=== PATIENT | female | born 1955 | race African-American/Black ===

== ENCOUNTER 2017-06-20 08:56 | Inpatient (IN) ==
[2017-06-20 10:57] LABS: Basophils # 0.1 10*3/uL (0.0-0.2); Basophils % 2.2 % (0.0-0.8); Eosinophils # 0.1 10*3/uL (0.0-0.87); Eosinophils % 2.2 % (0.00-10.9); Hematocrit 30.2 VOL% (35.7-47.0); Hemoglobin 10.7 GM/DL (12.0-16.0); Immature Granulocytes % 0.3 %; Immature Granulocytes Absolute 0.01 #; Lymphocytes # 1.3 10*3/uL (1.4-4.0); Lymphocytes % 33.9 % (21.3-54.2); Mean Corpuscular HGB Conc 35.4 GM/DL (32-36); Mean Corpuscular Hemoglobin 31 PG (27-34); Mean Platelet Volume 9.6 FL (9.6-12.0); Monocytes # 0.4 10*3/uL (0.11-0.8); Monocytes % 10.2 % (1.7-12.7); Neutrophils # 1.9 10*3/uL (1.4-7.4); Neutrophils % 51.2 % (38.7-73.9); Platelet Count 250 T/CUMM (130-400); Red Blood Count 3.43 MC/CUMM (3.8-5.5); Red Cell Distribution Width 13.2 % (9.3-17.3); White Blood Count 3.7 T/CUMM (4-12)
--- NOTE | 2017-06-20 11:24 | Emergency Department Note ---
Arrival - Arrival Chief Complaint: Abdominal / Flank Pain Stated Complaint: BLACK VOMIT, BLACK STOOL ED Nursing Triage Note: Pt c/o abd pain and had dark red blood in her stool/ vomit on Saturday, but the dark colored stool has improved. [place] [facility] [place] that if her abd started hurting for her to go into the ER for eval. Mode of Arrival: Ambulatory Time Seen by Provider: 06/20/17 10:27 - History of Present Illness HPI Narrative: Patient presents to the ER today with c/o abd pain and had dark stools yesterday. She states on Saturday she was weak and vomited "black stuff". She saw her PCP on Saturday and was told to the ER if it continued. Today her BM was normal and she has not vomited since Saturday. She states the pain is in her epigastric region and describes it as "someone punching me". She states that relaxing makes the pain better but food makes the pain worse. She states she just started her HTN and Thyroid medication yesterday. She states she has never had this pain before. PCP- Constantino at [facility] Allergies- none PMH- HTN, Thryoid Social- ETOH occasionally Drugs ("weed') occasionally Smoke- denies Allergies/Adverse Reactions: Allergies Allergy/AdvReac Type Severity Reaction Status Date / Time No Known Allergies Allergy Verified 06/20/17 08:57 Home Medications: Home Medications Medication Instructions Recorded Confirmed Type Levothyroxine Tab [Synthroid Tab] 50 mcg PO QAM 06/20/17 06/20/17 History amLODIPine [Norvasc] 10 mg PO QAM 06/20/17 06/20/17 History Review of System - Review of System 12 point system: reviewed and no additional remarkable complaints except as stated Medical,Surgical,& Family Hx - Medical History Cardio: History of: Hypertension Endocrine: History of: Thyroid Disorder - Social History Smoking Status: Never smoker Exam Physical Examination: General General appearance: 61-year-old black female is alert and in no apparent distress - Head Head exam: Present: atraumatic, normocephalic, normal inspection - Eye Eye exam: Present: normal appearance, PERRL, EOMI - ENT ENT exam: Present: mucous membranes moist - Neck Neck exam: Present: normal inspection, full ROM, trachea midline - Chest Chest inspection: Present: normal inspection, symmetric chest wall rise - Respiratory Respiratory exam: Present: normal lung sounds bilaterally - Cardiovascular Cardiovascular exam: Present: regular rate, normal rhythm, normal heart sounds - Abdominal Exam Abdominal exam: Present: soft, normal bowel sounds, slight tenderness to palpation on the left upper quadrant and epigastric area - Rectal Exam Rectal exam: Nurse Rita present for exam- - Extremities Exam Extremities exam: Present: normal inspection, full ROM, normal capillary refill - Back Exam Back exam: Present: normal inspection, full ROM - Neurological Exam Neurological exam: Present: alert, oriented X3, CN II-XII grossly intact - Psychiatric Psychiatric exam: Present: normal affect, normal mood - Skin Skin exam: Present: warm, dry, intact, normal color, Vital Signs: Vital Signs Temperature 98.2 F 06/20/17 15:01 Pulse Rate 84 06/20/17 15:01 Respiratory Rate 18 06/20/17 15:01 Blood Pressure 159/93 06/20/17 15:01 O2 Sat by Pulse Oximetry 97 06/20/17 15:01 Course Course Narrative: Hemocult - grossly positive 1207: Spoke to hospitalist service- they will come evaluate the patient Results - Labs CBC & BMP: 06/20/17 15:03 06/20/17 10:43 Lab Results: I have reviewed the patients labs Labs: Laboratory Tests 06/20/17 10:43 Sodium 136 Potassium 4.2 Chloride 100 Carbon Dioxide 31 Anion Gap 9.2 BUN 8 Creatinine 0.60 GFR Calculation 96 BUN/Creatinine Ratio 13.00 Glucose 108 H Calculated Osmolality 270.0 L Calcium 9.7 Total Bilirubin 1.20 H AST 78 H ALT 46 Alkaline Phosphatase 55 Total Protein 7.8 Albumin 4.2 Globulin 3.6 H Albumin/Globulin Ratio 1.1 Laboratory Tests 06/20/17 10:43 WBC 3.7 L RBC 3.43 L Hgb 10.7 L Hct 30.2 L MCV 88.0 MCH 31 MCHC 35.4 RDW 13.2 Plt Count 250 MPV 9.6 Neut % (Auto) 51.2 Lymph % (Auto) 33.9 [place] % (Auto) 10.2 Eos % (Auto) 2.2 Baso % (Auto) 2.2 H Neut # (Auto) 1.9 Lymph # (Auto) 1.[address] [place] # (Auto) 0.4 Eos # (Auto) 0.1 Baso # (Auto) 0.1 Immature Gran % 0.3 Nucleated RBC % 0.0 Immature Gran # 0.01 Nucleated RBCs # 0.00 Immature Plt Fraction 0.0 Disposition Clinical Impression: GI bleed Case discussed with: patient, patient's family Disposition: Still a Patient Condition: Stable Time of Disposition: 14:40
[2017-06-20 11:44] LABS: Albumin 4.2 G/DL (3.4-5.0); Bilirubin,Total 1.2 MG/DL (0.2-1.0); Calcium 9.7 MG/DL (8.5-10.1); Potassium 4.2 MMOL/L (3.5-5.1); Total Protein 7.8 G/DL (6.4-8.3)
--- NOTE | 2017-06-20 14:12 | Hospitalist History & Physical ---
<Juan Yates - Last Filed: 06/20/17 13:57> Assessment and Plan - Time spent with patient Time spent with patient: Greater than 30 minutes (1) GI bleed Status: Acute Assessment and plan: 61-year-old -Malaysian female who presents for further evaluation of GI bleed. Patient reports history of melena and coffee-ground emesis which seemed to have resolved since Saturday. She does have heme positive stools on admission. H&H is 10.7 and 30.2. Admit for further evaluation to a monitored bed. IV fluids. NPO. Type and screen. Trend H&H. GI consultation. Current Visit: Yes (2) Hypertension Status: Acute Assessment and plan: Continue home medications. Current Visit: Yes (3) Hypothyroidism Status: Acute Assessment and plan: Check TSH and free T4 level. Continue home medications. Current Visit: Yes History of Present Illness Chief complaint: abdominal pain History of present illness: Ms. Brown is a 61 year old female with a past medical history significant for hypertension and hypothyroidism who presents to nonurgent care today for further evaluation of suspected GI bleed having onset 3 days ago. The patient reports she experienced a syncopal episode on Saturday however she recalls being aware of "everything". Shortly after regaining her footing, she began to have coffee ground emesis and melena. She went to the [facility] and was evaluated there. She reports continued abdominal pain but states that her BM has returned to normal. She describes this abdominal pain as someone "punching her in the stomach". She denies much of an appetite as food seems to make the abdominal pain worse. She denies excessive NSAID use stating that she has only taken one Ibuprofen in the last week, however she confirms being under stress at home. Per ED nurse, patient does have heme positive stool. H&H is mildly decreased at 10.7 and 30.2. Serum glucose 108. This case has been discussed with Sophy Barkley NP and Dr. Miller, admitting physician, and the patient will be admitted to the hospital medicine service for further evaluation and treatment. CODE STATUS has been discussed; patient is a full code. Home medications have been reviewed and reconciled. Home Medications Medication Instructions Recorded Confirmed Type Levothyroxine Tab [Synthroid Tab] 50 mcg PO QAM 06/20/17 06/20/17 History amLODIPine [Norvasc] 10 mg PO QAM 06/20/17 06/20/17 History Allergies Allergy/AdvReac Type Severity Reaction Status Date / Time No Known Allergies Allergy Verified 06/20/17 08:57 Medical,Surgical,& Family Hx - Medical History Cardio: History of: Hypertension Endocrine: History of: Thyroid Disorder - Surgical History Reproductive Surgeries: Surgical HX of;: Tubal Ligation - Family History Family History: Reports;: Family Diabetes, Family Hypertension - Social History Smoking Status: Current some day smoker Have you smoked in the last 12 months: Yes Time spent discussing smoking cessation with patient: 3 to 10 minutes Frequency of Alcohol Use: Frequently (3-6 beers daily) Type of Drug Use: Marijuana Marital Status: Single Lives With:: Children Functional capacity: independent ambulation - Constitutional Constitutional: Present: weakness. Absent: fever(s) - EENT Eyes: Absent: blurry vision, loss of vision Nose, mouth and throat: Absent: neck pain, sinus pressure - Cardiovascular Cardiovascular: Absent: chest pain at rest, chest pain with activity, dyspnea, dyspnea on exertion, edema - Respiratory Respiratory: Absent: cough, dyspnea, wheezing, snoring - Gastrointestinal Gastrointestinal: Present: abdominal pain, coffee ground emesis, hematemesis, melena - Genitourinary Genitourinary: Absent: hematuria - Musculoskeletal Musculoskeletal: Absent: back pain, myalgias - Neurological Neurological: Present: syncope. Absent: abnormal gait, abnormal speech - Psychiatric Psychiatric: Absent: anxiety, depression - Endocrine Endocrine: Present: cold intolerance - Hematologic/Lymphatic Hematologic/Lymphatic: Absent: easy bleeding, easy bruising Exam - Constitutional Vitals: Period Temp Pulse Resp BP Sys/Rodrigues Pulse Ox Last 24 Hr 97.3 F-97.3 F 84-91 16-20 152-187/78-110 99-100 Exam: General appearance: normal weight, no acute distress - Head Head exam: Present: normocephalic, atraumatic - Eye Eye exam: Present: EOMI. Absent: conjunctival injection, nystagmus Pupils: Present: JENNIE, normal accommodation - ENT ENT exam: Present: normal exam, normal external ear exam - Neck Neck exam: Present: normal inspection. Absent: lymphadenopathy, tenderness, thyromegaly - Respiratory Respiratory exam: Present: clear to auscultation bilaterally. Absent: rales, rhonchi, wheezes - Cardiovascular Cardiovascular exam: Present: regular rate and rhythm. Absent: carotid bruit, gallop, rubs - GI/Abdominal GI/Abdominal exam: Present: normal bowel sounds. Absent: ascites, distended, mass - Extremities Exam Extremities exam: Present: normal inspection, normal capillary refill. Absent: edema - Back Exam Back exam: Absent: CVA tenderness (L), CVA tenderness (R) - Neurological Exam Neurological exam: Present: alert, oriented X3, CN II-XII intact, reflexes normal - Psychiatric Psychiatric exam: Present: normal affect, normal mood - Skin Skin exam: Present: normal color, warm, dry Results - Labs CBC & BMP: 06/20/17 10:43 06/20/17 10:43 Lab Results: I have reviewed the past 24 hour labs <Jeanna Miller - Last Filed: 06/20/17 15:18> Assessment and Plan (1) GI bleed Status: Acute Assessment and plan: agree with above Current Visit: Yes (2) Hypertension Status: Acute Current Visit: Yes (3) Hypothyroidism Status: Acute Current Visit: Yes History of Present Illness History of present illness: Ms. Brown is a 61 year old female seen and examined, history and physical reviewed and edited. Exam - Constitutional Vitals: Period Temp Pulse Resp BP Sys/Rodrigues Pulse Ox Last 24 Hr 97.3 F-98.2 F 84-91 16-20 152-187/78-110 97-100 Results - Labs CBC & BMP: 06/20/17 10:43 06/20/17 10:43
[2017-06-20] MEDS ORDERED: ONDANSETRON 4 MG/2 ML VIAL IV PRN (14:50)
[2017-06-20] MEDS ORDERED: ACETAMINOPHEN 325 MG TABLET PO PRN (14:50)
--- NOTE | 2017-06-20 15:03 | Gastrointestinal Consult Note ---
<Karen Guajardo - Last Filed: 06/20/17 15:06> Assessment and Plan (1) GI bleed Status: Acute Assessment and plan: history of abdominal pain with associated coffee-ground emesis and melena. No prior history of GI bleed in the past. No known prior history of endoscopy in the past. Occasional ibuprofen use. Clear liquid diet. Monitor H &H. Plan for EGD tomorrow to further evaluate. Plan an addendum to followed by Dr. Us. Current Visit: Yes History of Present Illness Chief complaint: GI bleed History of present illness: Ms. Brown is a 61 year old female who was admitted to the hospital today with a four-day history of abdominal pain with associated melena and coffee-ground emesis. Patient states she was in her usual state of health until Saturday when she began not feeling well. She states she had onset of some epigastric discomfort that was like a "gnawing" sensation all the time. She states that throughout the day she did not feel well and did not eat very much however that night she developed nausea and vomiting as well as diarrhea. She states with the vomiting she had a moderate amount of dark coffee-ground emesis. Following this she had a couple of loose dark runny stools. She states that the vomiting and the diarrhea resolved by Saturday however she continued to have the pain in her abdomen. She decided to come to the emergency room today for further evaluation of the pain. She states the pain does not seem to be associated with meals are affected by other factors. She states the pain is continuous at times and other times occur sporadically. She denies any recent weight loss fever or chills. She denies any dysphagia or GERD. She denies any increase dyspepsia symptoms. She states that she only takes an occasional ibuprofen for her sinuses. Denies any anticoagulants. H&H is stable at however have no baseline labs to compare to at this time. Patient is not aware of a prior history of anemia. States she is not aware of having a GI bleed in the past and does not recall having endoscopy in the past. Home Medications Medication Instructions Recorded Confirmed Type Levothyroxine Tab [Synthroid Tab] 50 mcg PO QAM 06/20/17 06/20/17 History amLODIPine [Norvasc] 10 mg PO QAM 06/20/17 06/20/17 History Allergies Allergy/AdvReac Type Severity Reaction Status Date / Time No Known Allergies Allergy Verified 06/20/17 08:57 Medical,Surgical,& Family Hx - Medical History Cardio: History of: Hypertension Endocrine: History of: Thyroid Disorder - Surgical History Reproductive Surgeries: Surgical HX of;: Tubal Ligation - Family History Family History: Reports;: Family Diabetes, Family Hypertension - Social History Smoking Status: Current some day smoker Frequency of Alcohol Use: Frequently (3-6 beers daily) Type of Drug Use: Marijuana 12 point system: reviewed and no additional remarkable complaints except as stated - Constitutional Constitutional: Present: as per HPI - EENT Eyes: Present: as per HPI Ears: Present: as per HPI Nose, mouth and throat: Present: as per HPI - Cardiovascular Cardiovascular: Present: as per HPI - Respiratory Respiratory: Present: as per HPI - Gastrointestinal Gastrointestinal: Present: as per HPI, abdominal pain, coffee ground emesis, diarrhea, melena, nausea, vomiting - Genitourinary Genitourinary: Present: as per HPI - Musculoskeletal Musculoskeletal: Present: as per HPI - Neurological Neurological: Present: as per HPI - Psychiatric Psychiatric: Present: as per HPI - Endocrine Endocrine: Present: as per HPI - Hematologic/Lymphatic Hematologic/Lymphatic: Present: as per HPI Exam - Constitutional Vitals: Period Temp Pulse Resp BP Sys/Rodrigues Pulse Ox Last 24 Hr 97.3 F-98.2 F 84-91 16-20 152-187/78-110 97-100 General appearance: normal weight, no acute distress - Head Head exam: Present: normal inspection, normocephalic - Eye Eye exam: Present: other (Lids and conjunctivae are unremarkable). Absent: scleral icterus - ENT ENT exam: Present: normal exam, normal oropharynx - Neck Neck exam: Present: normal inspection - Respiratory Respiratory exam: Present: clear to auscultation bilaterally. Absent: rales, rhonchi, wheezes - Cardiovascular Cardiovascular exam: Present: regular rate and rhythm. Absent: diastolic murmur , JVD, systolic murmur - GI/Abdominal GI/Abdominal exam: Present: normal bowel sounds, soft. Absent: ascites, distended, mass, organomegaly, tenderness - Extremities Exam Extremities exam: Present: normal inspection, full ROM - Back Exam Back exam: Present: normal inspection - Neurological Exam Neurological exam: Present: alert, oriented X3 - Psychiatric Psychiatric exam: Present: normal affect, normal mood - Skin Skin exam: Present: normal color, warm, dry Results - Labs CBC & BMP: 06/20/17 10:43 06/20/17 10:43 Lab Results: I have reviewed the past 24 hour labs <Matias Us - Last Filed: 06/20/17 21:24> History of Present Illness Chief complaint: 3030 History of present illness: Ms. Brown is a 61 year old female Exam - Constitutional Vitals: Period Temp Pulse Resp BP Sys/Rodrigues Pulse Ox Last 24 Hr 97.3 F-98.7 F 84-91 16-20 152-187/78-110 97-100 Results - Labs CBC & BMP: 06/20/17 19:37 06/20/17 10:43
[2017-06-20 15:08] LABS: Free T4 (Free Thyroxine) 0.66 NG/DL (0.76-1.46); Thyroid Stimulating Hormone 77.3 uIU/ml (0.358-3.74)
[2017-06-20] MEDS: SODIUM CHLORIDE 0.45% 1,000 ML IV SCH (15:20)
[2017-06-20] MEDS: SODIUM CHLORIDE 0.9% 1,000 ML IV SCH ×2 (15:20→20:52)
[2017-06-20] MEDS: PANTOPRAZOLE 40 MG VIAL IV SCH ×2 (15:20→20:53)
[2017-06-20 15:33] LABS: Hematocrit 30.8 VOL% (35.7-47.0); Hemoglobin 11.1 GM/DL (12.0-16.0)
[2017-06-20 20:21] LABS: Hematocrit 29.2 VOL% (35.7-47.0); Hemoglobin 10.3 GM/DL (12.0-16.0)
[2017-06-21] MEDS: SODIUM CHLORIDE 0.45% 1,000 ML IV SCH ×4 (04:04→23:15)
[2017-06-21 07:01] LABS: Basophils # 0.1 10*3/uL (0.0-0.2); Basophils % 2.6 % (0.0-0.8); Eosinophils # 0.2 10*3/uL (0.0-0.87); Eosinophils % 5.9 % (0.00-10.9); Hematocrit 28.7 VOL% (35.7-47.0); Immature Granulocytes % 0.7 %; Immature Granulocytes Absolute 0.02 #; Lymphocytes % 36.4 % (21.3-54.2); Mean Corpuscular HGB Conc 34.8 GM/DL (32-36); Mean Corpuscular Hemoglobin 31 PG (27-34); Mean Corpuscular Volume 87.8 FL (87-102); Mean Platelet Volume 9.8 FL (9.6-12.0); Monocytes # 0.3 10*3/uL (0.11-0.8); Monocytes % 10.7 % (1.7-12.7); Neutrophils # 1.2 10*3/uL (1.4-7.4); Neutrophils % 43.7 % (38.7-73.9); Platelet Count 237 T/CUMM (130-400); Red Blood Count 3.27 MC/CUMM (3.8-5.5); Red Cell Distribution Width 13.2 % (9.3-17.3); White Blood Count 2.7 T/CUMM (4-12)
[2017-06-21 07:02] LABS: Hematocrit 28.6 VOL% (35.7-47.0)
[2017-06-21] MEDS: LEVOTHYROXINE 50 MCG TABLET PO SCH (07:32)
[2017-06-21 07:33] LABS: Eosinophils 3 % (0-10); Giant Platelets Few; Hypochromasia 1+; Lymphocytes 38 % (20-55); Platelet Estimate Normal; Segmented Neutrophils 49 % (50-85); Total Cells Counted 100
[2017-06-21 07:35] LABS: Calcium 9.2 MG/DL (8.5-10.1); Osmolality,Calculated 269.8 MOS/KG (273-304); Potassium 3.8 MMOL/L (3.5-5.1)
[2017-06-21] MEDS: PANTOPRAZOLE 40 MG VIAL IV SCH ×2 (09:19→21:52)
--- NOTE | 2017-06-21 10:32 | Hospitalist Progress Note ---
Hospitalist: Subjective Interval history: Patient was admitted last night with an upper gastrointestinal bleed. She is to undergo EGD today. Exam - Constitutional Vitals: Period Temp Pulse Resp BP Sys/Rodrigues Pulse Ox Last 24 Hr 97 F-98.7 F 74-91 16-20 144-173/74-93 97-100 General appearance: no acute distress - Head Head exam: Present: normal inspection - Neck Neck exam: Present: normal inspection - Respiratory Respiratory exam: Present: clear to auscultation bilaterally - Cardiovascular Cardiovascular exam: Present: regular rate and rhythm - GI/Abdominal GI/Abdominal exam: Present: normal bowel sounds, soft, other (Nontender with no palpable masses or hepatosplenomegaly.) - Extremities Exam Extremities exam: Present: normal inspection - Skin Skin exam: Present: normal color, warm, intact Results - Labs CBC & BMP: 06/21/17 06:35 06/21/17 06:35
[2017-06-21] MEDS ORDERED: PROPOFOL 200 MG/20 ML VIAL IV ONE (11:26)
[2017-06-21] MEDS ORDERED: LIDOCAINE 2% 5 ML VIAL ONE (11:26)
--- NOTE | 2017-06-21 11:42 | Anesthesia Post-Op ---
Anesthesia Post OP - Post Ansesthetic Evaluation Patient seen in post op: Yes Resp: within normal limits CV: within normal limits Mental: within normal limits Temp: within normal limits Encu-Lm-Iudmrqccg: within normal limits Nausea and Vomiting: within normal limits Pain: within normal limits
--- NOTE | 2017-06-21 11:43 | Operative Note ---
Date of procedure: 06/21/17 Pre-op diagnosis: Melena and epigastric pain Procedure: EGD with biopsy 61-year-old female with epigastric pain melenic stools now for upper endoscopy to further evaluate. Informed symptoms obtained the patient She was sedated with general anesthesia per anesthesia protocol. Patient placed in left lateral decubitus position the Olympus flexible video upper endoscope is her lower cavity under direct vision the esophagus intubated. Findings Esophagus-normal proximal mid esophageal mucosa distal esophagus normal no varices are seen. Stomach-normal insufflation there is acute prepyloric antral ulceration 2 each measuring approximately 6 mm with no visible vessel no active bleeding. Biopsies were taken. Pylorus-normal Duodenum-normal for the bulb duodenum to the third portion of duodenum. The procedure was terminated patient tolerated procedure well she is discharged recovery in good condition Postop diagnosis: 1. Acute peptic ulcer disease-continue PPI treatment avoid nonsteroidals. Low risk of significant bleeding. If biopsies positive for H. pylori will need treatment. Advance diet as tolerated. Can likely be discharged tomorrow if remains stable Anesthesia: other (General) Surgeon / Physician: Matias Us Estimated blood loss: none Specimens: none sent Condition: stable Disposition: post procedure unit Results - Labs CBC & BMP: 06/21/17 06:35 06/21/17 06:35 Discharge Plan - Discharge Medications No Action amLODIPine [Norvasc] 10 mg PO QAM Levothyroxine Tab [Synthroid Tab] 50 mcg PO QAM - Follow Up or Referral - Forms/Instructions
[2017-06-21] MEDS: SODIUM CHLORIDE 0.9% 1,000 ML IV SCH (13:41)
[2017-06-21] MEDS: amLODIPine 10 MG TABLET PO SCH (14:54)
[2017-06-22 04:16] LABS: Basophils # 0.1 10*3/uL (0.0-0.2); Basophils % 1.6 % (0.0-0.8); Eosinophils # 0.1 10*3/uL (0.0-0.87); Eosinophils % 3.6 % (0.00-10.9); Hematocrit 27.5 VOL% (35.7-47.0); Hemoglobin 9.6 GM/DL (12.0-16.0); Immature Granulocytes % 0.3 %; Immature Granulocytes Absolute 0.01 #; Lymphocytes # 0.8 10*3/uL (1.4-4.0); Lymphocytes % 20.7 % (21.3-54.2); Mean Corpuscular HGB Conc 34.9 GM/DL (32-36); Mean Corpuscular Hemoglobin 31 PG (27-34); Mean Corpuscular Volume 87.6 FL (87-102); Monocytes # 0.5 10*3/uL (0.11-0.8); Monocytes % 12.2 % (1.7-12.7); Neutrophils # 2.4 10*3/uL (1.4-7.4); Neutrophils % 61.6 % (38.7-73.9); Platelet Count 233 T/CUMM (130-400); Red Blood Count 3.14 MC/CUMM (3.8-5.5); White Blood Count 3.9 T/CUMM (4-12)
[2017-06-22 04:41] LABS: Calcium 8.8 MG/DL (8.5-10.1); Osmolality,Calculated 270.7 MOS/KG (273-304); Potassium 3.6 MMOL/L (3.5-5.1)
[2017-06-22] MEDS: LEVOTHYROXINE 50 MCG TABLET PO SCH (06:23)
--- NOTE | 2017-06-22 09:52 | Discharge Summary ---
Hospital Course - Hospital Course Hospital Course: Ms. Brown is a 61 year old female with a past medical history significant for hypertension and hypothyroidism who presents to nonurgent care today for further evaluation of suspected GI bleed having onset 3 days ago. The patient reports she experienced a syncopal episode on Saturday however she recalls being aware of "everything". Shortly after regaining her footing, she began to have coffee ground emesis and melena. She went to the [facility] and was evaluated there. She reports continued abdominal pain but states that her BM has returned to normal. She describes this abdominal pain as someone "punching her in the stomach". She denies much of an appetite as food seems to make the abdominal pain worse. She denies excessive NSAID use stating that she has only taken one Ibuprofen in the last week, however she confirms being under stress at home. Per ED nurse, patient does have heme positive stool. H&H is mildly decreased at 10.7 and 30.2. Serum glucose 108. Patient was begun on treatment with intravenous pantoprazole. She was seen in consultation by Dr. Magen Salcedo of gastroenterology. She underwent an EGD on 06/21/[address] Salcedo demonstrating a large acute pre-antral pyloric ulcer. She experienced no further episodes of vomiting. She experienced no subsequent abdominal pain. At the time of discharge she was stable with no complaints. Diagnosis - Discharge Diagnosis (1) Peptic ulcer disease with hemorrhage Status: Acute (2) GI bleed Status: Acute (3) Hypertension Status: Chronic (4) Hypothyroidism Status: Chronic Discharge Plan - Discharge Data Disposition: Disch To Home/Self Care Condition at Discharge: Stable Discharge Diet: advance to your usual diet Activity: resume usual activities as tolerated - Discharge Medications New Pantoprazole Tab [Protonix Tab] 40 mg PO BID #60 tablet Continue amLODIPine [Norvasc] 10 mg PO QAM Levothyroxine Tab [Synthroid Tab] 50 mcg PO QAM - Follow Up or Referral - Forms/Instructions Exam - Constitutional Vitals: Period Temp Pulse Resp BP Sys/Rodrigues Pulse Ox Last 24 Hr 97.1 F-98.3 F 72-92 14-20 104-172/23-98 95-100 Discharge Results Procedures and tests throughout hospitalization: Pending Orders 06/20/17 12:51 Occult Blood, Stool Stat 06/23/17 04:00 Basic Metabolic Panel IN AM Comp Blood Count Auto Diff IN AM Labs on day of discharge: Labs from last 24 hours 06/22/17 06/22/17 03:38 03:38 WBC 3.9 L D RBC 3.14 L Hgb 9.6 L Hct 27.5 L MCV 87.6 MCH 31 MCHC 34.9 RDW 13.0 Plt Count 233 MPV 10.0 Neut % (Auto) 61.6 Lymph % (Auto) 20.7 L [place] % (Auto) 12.2 Eos % (Auto) 3.6 Baso % (Auto) 1.6 H Neut # (Auto) 2.4 Lymph # (Auto) 0.8 L [place] # (Auto) 0.5 Eos # (Auto) 0.1 Baso # (Auto) 0.1 Immature Gran % 0.3 Nucleated RBC % 0.0 Immature Gran # 0.01 Nucleated RBCs # 0.00 Immature Plt Fraction 0.0 Sodium 138 Potassium 3.6 Chloride 103 Carbon Dioxide 30 Anion Gap 8.6 BUN 5 L Creatinine 0.60 GFR Calculation 96 BUN/Creatinine Ratio 8.00 Glucose 87 Calculated Osmolality 270.7 L Calcium 8.8 DS: Provider Date of admission: 06/20/17 12:50 Primary care physician: . No PCP Attending physician on admission: Jeanna Miller MD Consults: 06/20/17 12:54 Consult to Physician [CONS] Routine Comment: GI Bleed Consulting Provider: Matias Us Consult to Specialist Group: Gastroenterology Person Notified: alli Date Notified: 06/20/17 Time Notified: 15:01 06/20/17 15:07 Consult to Pastoral Services [CONS] Routine Comment: Pastoral Screen: Request [employer] Supervisor Visit Pastoral Screen Source of Request: Patient Discharging clinician: Isaac Weeks
[2017-06-22] MEDS: amLODIPine 10 MG TABLET PO SCH (10:18)
[2017-06-22] MEDS: PANTOPRAZOLE 40 MG VIAL IV SCH (10:19)
[2017-06-22] MEDS: SODIUM CHLORIDE 0.45% 1,000 ML IV SCH (10:19)
[2017-06-22 12:21] VITALS: BP 123/80
--- NOTE | 2017-06-24 11:22 | Pathology Report from [facility] ---
[facility] ACCESSION # : [id number] PATIENT NAME : Ruthann Zhu ORDERING DR : TERESA COREAS MD CLINICAL HX: GI Bleed - Abdominal pain POST-OP DX: Gastric ulcer SPECIMEN INFO: Gastric biopsy GROSS DESCRIPTION: The specimen is received in formalin labeled with the patients name and consists of a 0.8 x 0.2 cm aggregate of huynh tissue. Submitted in one cassette. DIAGNOSIS FOR RUTHANN ZHU: GASTRIC BIOPSY: Marked chronic superficial gastritis. No evidence of malignancy. H. pylori not seen on H&E or special stain with appropriate control. COLLECTED DATE: 06/21/2017 [facility] REPORT DATE: 06/24/2017 ELECTRONICALLY SIGNED BY: Hakeem Boyd III, M.D. 06/24/2017 - 9:37:22 [facility]
== END 2017-06-22 12:07 | disposition home or self-care (01) | DRG 379 ==
LOC: N.ED 08:56 → N.EDINP 12:50 → SUATTDRO 12:50 → N.EDINP 14:45 → N.2E 14:49
PROVIDERS: ADMIT Internal Medicine